=== PATIENT | male | born 1950 | race Caucasian/White ===

== ENCOUNTER 2019-02-17 11:27 | Outpatient (CLI) | END 2019-02-17 11:28 | disposition home or self-care (01) | LOC: RHC-LAB 11:27 | PROVIDERS: ATTEND Nurse Practitioner Family | DX: R30.0 Dysuria (principal) | CPT/HCPCS: 87086 ==

== ENCOUNTER 2019-02-19 12:50 | Outpatient (CLI) ==
--- NOTE | 2019-02-19 14:10 | US ---
EXAM: Ultrasound of the urinary bladder. History: Bladder pain. Technique: Multiple sonographic images through the bladder were obtained. Color duplex Doppler was used to interrogate vascular flow. Findings: Bladder is not well distended. Focal wall thickening along the right side of the bladder. 5.4 cm so ft tissue density within the pelvis near the bladder. 6 cm cystic pelvic mass versus bladder diverti culum. Impression: Abnormal bladder with wall thickening and possible pelvic mass. Recommend further evalu ation with CT of the abdomen pelvis with and without contrast. CT urogram can be obtained.
== END 2019-02-19 12:51 | disposition home or self-care (01) ==
LOC: RAD 12:50
PROVIDERS: ATTEND Nurse Practitioner Family
DX: N40.0 Benign prostatic hyperplasia without lower urinary tract symptoms (principal); R30.0 Dysuria

== ENCOUNTER 2019-02-21 16:15 | Outpatient (CLI) | END 2019-02-21 16:16 | disposition home or self-care (01) | LOC: RHC-LAB 16:15 | PROVIDERS: ATTEND Nurse Practitioner Family | DX: Z00.01 Encounter for general adult medical examination with abnormal findings (principal); M79.10 Myalgia, unspecified site; N41.0 Acute prostatitis; Z12.5 Encounter for screening for malignant neoplasm of prostate | CPT/HCPCS: 36415; 80053; 85025 ==

== ENCOUNTER 2019-02-28 08:34 | Outpatient (CLI) ==
--- NOTE | 2019-02-28 10:29 | CT ---
EXAM: CT urogram HISTORY: Burning with urination, constipation. TECHNIQUE: CT abdomen and pelvis with and without intravenous contrast. Multiplanar images provided . 3-D reconstructions. 100 ml Omnipaque. FINDINGS: No comparison CT. Unenhanced images reveal no nephrolithiasis, ureteral calculus or urinary bladder stone. There is no hydronephrosis or perinephric fat stranding. After intravenous contrast administration, there were two small masses of the left renal cortex, each measuring about 1.4 cm. The superior pole entity had water attenuation on both unenhanced and enhanced sequences consistent with a simple cyst. The late ral mid pole mass had relative soft tissue attenuation on both unenhanced and enhanced sequences with no significant increase in density possibly representing either a solid nodule or more likely a prot einaceous cyst. This can be correlated with ultrasound. No other renal masses and the renal parench yma otherwise had normal enhancement. Delayed images revealed prompt and symmetric contrast enhanced urine excretion into nondilated bilateral renal collecting systems. The delayed images revealed the opacified ureters to have normal caliber and appearance. Urinary bladder demonstrated luminal gas and severe thickening of its upper wall. There is a contigu ous portion of the sigmoid colon at this level which appears inflamed possibly related to diverticuli tis or colitis and a enterovesical fistula is suggested. Less likely severe cystitis with secondary inflammation of the contiguous bowel could be considered. Follow-up is recommended to assure return to normal appearance of the urinary bladder to help exclude bladder malignancy after management and s ymptom resolution. The distal small bowel is also inflamed although there is no bowel obstruction. This inflammation appears secondary to the aforementioned process. There is no well-defined drainabl e abscess. Prostate is prominent. No ascites. No focal hepatic or splenic lesions. Gallbladder and pancreas are within normal limits. Normal adrenal glands. Mild to moderate atherosclerotic disease. No gastric distension. What hood ears to represent the appendix has no evidence of inflammation. No pneumoperitoneum. Lung bases are clear. Degenerative changes of the lower spine are present. IMPRESSION: 1. Unexpected finding. The findings as described above (second paragraph of report) concerning for enterovesical fistula secondary to focal sigmoid diverticulitis. Other less likely possible etiologi es are described. Immediate urologic consultation is recommended. 2. Two small left renal cortical masses one which appears to represent a simple cyst and the other p ossibly a proteinaceous cyst. Correlate with dedicated renal ultrasound follow-up.
== END 2019-02-28 08:35 | disposition home or self-care (01) ==
LOC: RAD 08:34
PROVIDERS: ATTEND Nurse Practitioner Family
DX: R19.00 Intra-abdominal and pelvic swelling, mass and lump, unspecified site (principal)

== ENCOUNTER 2019-03-18 07:07 | Outpatient (CLI) | payer OTHER ==
--- NOTE | 2019-03-18 08:36 | US ---
EXAM: Renal ultrasound. History: Left renal masses. Comparison: CT abdomen pelvis 02/28/2019 Technique: Multiple sonographic images through the kidneys were obtained. Color duplex Doppler was used to interrogate vascular flow. Findings: The liver is echogenic. The bladder was not well distended. The right kidney measures 12.6 cm in long length demonstrating normal cortical echogenicity without e vidence for hydronephrosis, mass or shadowing calculus. The left kidney measures 13.5 cm in long length demonstrating normal cortical echogenicity without ev idence for hydronephrosis or shadowing calculus. 2 cm cyst and 1.6 cm cyst. No suspicious renal mas ses. Impression: 1. No hydronephrosis. 2. Simple left renal cysts. 3. Hepatic steatosis
== END 2019-03-18 07:08 | disposition home or self-care (01) ==
LOC: RAD 07:07
PROVIDERS: ATTEND Nurse Practitioner Family
DX: N28.89 Other specified disorders of kidney and ureter (principal)